=== PATIENT | female | born 1995 | race African-American/Black ===

== ENCOUNTER 2017-01-23 14:27 | Emergency (ER) | payer OTHER ==
[~2017-01-23] VITALS: Ht 165.1 cm; Wt 87.1 kg
[~2017-01-23 14:27] MED LIST: CIPROFLOXACIN500 M1 PO; FLONASE 0.05%50 MCG NASAL; NAPROSYN500 MG PO; NORCO 5-325 TA1 EACH PO; NORFLEX100 MG PO; TRINATE TABLET1 TAB PO; ZOFRAN ODT4 MG DISSOLVE; ZOFRAN ODT4 MG PO
[2017-01-23 15:11] LABS: HEMATOCRIT 39.3 % (37.0-47.0); HEMOGLOBIN 13.3 gm/dL (12.0-15.0); MCH 31.5 pg (26.0-34.0); MCHC 33.9 g/dL (28.0-37.0); MCV 92.9 fL (80.0-100.0); PLATELET COUNT 207 thou/uL (150-400); RBC 4.23 mil/uL (4.20-5.00); RDW 12.9 % (10.5-14.5); WBC 11.3 thou/uL (4.0-11.0)
[2017-01-23 15:12] LABS: MANUAL DIFF YES
[2017-01-23 15:24] LABS: ALBUMIN 3.6 g/dL (3.4-5.0); CALCIUM 9.1 mg/dL (8.5-10.1); CREATININE 0.5 mg/dL (0.6-1.3); POTASSIUM 4.1 mmol/L (3.5-5.1); TOTAL BILIRUBIN 0.7 mg/dL (<0.1-1.0); TOTAL PROTEIN 7.8 g/dL (6.4-8.2)
[2017-01-23 15:41] LABS: ABSOLUTE NEUTROPHILS 9.8 thou/uL (1.4-8.2); POIKILOCYTOSIS SLIGHT; TOTAL CELL COUNT 100
[2017-01-23] MEDS ORDERED: ZOFRAN ODT4 M1 PO (16:53)
[2017-01-23 17:15] VITALS: BP 96/48
== END 2017-01-23 17:16 | disposition home or self-care (01) ==
LOC: ER 14:27
PROVIDERS: Physician Assistant
DX: O26.892 Other specified pregnancy related conditions, second trimester (principal); Z3A.15 15 weeks gestation of pregnancy; R11.2 Nausea with vomiting, unspecified; R19.7 Diarrhea, unspecified; R10.9 Unspecified abdominal pain; R10.2 Pelvic and perineal pain